=== PATIENT | male | born 1965 | race American Indian/Alaskan Native ===

== ENCOUNTER 2016-10-21 11:39 | Outpatient (CLI) | payer OTHER ==
--- NOTE | 2016-10-21 12:35 | XRay Report ---
LUMBOSACRAL SPINE, 3 VIEWS: History: Back pain Findings: Normal bone mineralization. Mild disc space narrowing and facet arthropathy are identified at L3-4, L4-5 and L5-S1. There is no evidence for compression deformity, bone lesion or subluxation. The sacrum and SI joints are within normal limits. Impression: Mild lumbar spondylosis.
--- NOTE | 2016-10-21 12:35 | XRay Report ---
LEFT HIP, 2 views: History: Left hip pain. The bony architecture is intact without evidence of fracture or dislocation. No significant soft tissue abnormality is seen. IMPRESSION: Normal left hip.
== END 2016-10-21 11:40 | disposition home or self-care (01) ==
LOC: SPVIMAG 11:39
DX: M47.896 Other spondylosis, lumbar region (principal); M25.552 Pain in left hip
CPT/HCPCS: 72100